=== PATIENT | male | born 1960 | race Caucasian/White ===

== ENCOUNTER 2016-11-18 03:15 | Emergency (ER) | payer BC ==
--- NOTE | 2016-11-18 03:31 | EDM.PDOC ---
[id number] 4d RIB PAIN Time Seen by Provider: 11/18/16 03:20 Source of Information: Reports: Patient History Limitations: Reports: No limitations - History of Present Illness INITIAL COMMENTS - FREE TEXT/NARRATIVE: HISTORY AND PHYSICAL: History of present illness: [56-year-old male complaining of right-sided rib pain since last night. Patient has had a nonproductive cough for a week and a half. He has some severe coughing fits and during one of these yesterday he evolved sudden right sided rib pain is reproducible with palpation and deep breath. No anticoagulants. No prior history of pneumothorax or hypercoagulability. No fevers chills sweats or shaking chills. No exertional chest pain. No nausea vomiting or diaphoresis. Patient is not short of breath however he said his right ribs do hurt when he takes a deep breath Review of systems: As per history of present illness and below otherwise all systems reviewed and negative. Past medical history: As per history of present illness and as reviewed below otherwise noncontributory. Surgical history: As per history of present illness and as reviewed below otherwise noncontributory. Social history: No reported history of drug or alcohol abuse. Family history: As per history of present illness and as reviewed below otherwise noncontributory. Physical exam: HEENT: Atraumatic, normocephalic, pupils reactive, negative for conjunctival pallor or scleral icterus, mucous membranes moist, throat clear, neck supple, nontender, trachea midline. Lungs: Clear to auscultation, breath sounds equal bilaterally, chest with right lateral rib tenderness. No subcutaneous air or bony crepitus. No ecchymosis or skin changes Heart: S1S2, regular, negative for clicks, rubs, or JVD. Abdomen: Soft, nondistended, nontender. Negative for masses or hepatosplenomegaly. Negative for costovertebral tenderness. Pelvis: Stable nontender. Genitourinary: Deferred. Rectal: Deferred. Extremities: Atraumatic, negative for cords or calf pain. Neurovascular unremarkable. Neuro: Awake, alert, oriented. Cranial nerves II through XII unremarkable. Cerebellum unremarkable. Motor and sensory unremarkable throughout. Exam nonfocal. Diagnostics: [] Therapeutics: [] Impression: [] Plan: [] Definitive disposition and diagnosis as appropriate pending reevaluation and review of above. Right Lower Breast Pain Score (Numeric/FACES): 8 - Related Data Allergies Allergy/AdvReac Type Severity Reaction Status Date / Time No Known Allergies Allergy Verified 11/18/16 04:23 Home Meds: Home Meds Azithromycin [Zithromax] 250 mg PO DAILY #6 tablet 11/18/16 [Rx] Benzonatate 200 mg PO TID #30 capsule 11/18/16 [Rx] Hydrocodone/Acetaminophen [[place] 5-325 Tablet] 1 each PO Q4H PRN #10 tablet [Rx] Multivitamin [Multivitamins] 1 tab PO DAILY 11/18/16 [History] Past Medical History - Past Health History Medical/Surgical History: Denies Medical/Surgical History - Infectious Disease History Infectious Disease History: Reports: Chicken pox Social & Family History - Family History Family Medical History: Noncontributory - Tobacco Use Smoking Status *Q: Current Every Day Smoker Years of Tobacco use: 30 Packs/Tins Daily: 0.5 - Caffeine Use Caffeine Use: Reports: Coffee Caffeine Use Comment: 1cup/day - Recreational Drug Use Recreational Drug Use: No ED ROS GENERAL - Review of Systems Review Of Systems: See Below (Per history of present illness) ED EXAM, GENERAL - Physical Exam Exam: See Below (Per history of present illness) Course - Vital Signs Text/Narrative:: Signs and symptoms consistent with right rib injury. No bony crepitus appreciated. No subcutaneous air. Normal respiratory rate and pulse ox. Well- appearing patient. Chest x-ray pending to rule out displaced fracture, pulmonary complication of fracture, or other pulmonary findings. Toradol given IM. Normal respiratory rate and pulse ox. Chest x-ray with right-sided infiltrate. No pneumothorax. No displaced rib fracture or pneumothorax. Patient given dose of by mouth Zithromax ZURDO and will prescribe Z-Myles. He is aware to take ibuprofen and [place] prescribed to him as he feels he'll be unable asleep without something stronger than an NSAID. No further workup or treatment indicated. Patient agrees with outpatient followup. Strict return precautions given Last Recorded V/S: Last Vital Signs Temp 36.6 C 11/18/16 06:02 Pulse 83 11/18/16 06:02 Resp 16 11/18/16 06:02 BP 127/76 11/18/16 06:02 Pulse Ox 95 11/18/16 06:02 - Orders/Labs/Meds Meds: Medications Discontinued Medications Generic Name Dose Route Start Last Admin Trade Name Rosie PRN Reason Stop Dose Admin Azithromycin 500 mg 11/18/16 05:26 11/18/16 05:30 Zithromax PO 11/18/16 05:27 500 mg NOW STA Administration Ketorolac Tromethamine 60 mg 11/18/16 04:22 11/18/16 04:28 Toradol IM 11/18/16 04:23 60 mg ONETIME ONE Administration Departure - Departure Time of Disposition: 05:44 Disposition: Home, Self-Care 01 Condition: good Clinical Impression: Rib injury, Chest wall pain, Right middle lobe pneumonia Prescriptions: Azithromycin [Zithromax] 250 mg PO DAILY #6 tablet Benzonatate 200 mg PO TID #30 capsule Hydrocodone/Acetaminophen [[place] 5-325 Tablet] 1 each PO Q4H PRN #10 tablet PRN Reason: Breakthrough pain Instructions: Chest Wall Pain, [id number], Community-Acquired Pneumonia, Adult, [id number] Referrals: PCP,None [Primary Care Provider] - Forms: ED Department Discharge Additional Instructions: You have a right-sided pneumonia. Finish Zithromax as prescribed. Your excessive coughing as cause you to have a chest wall injury on the right. You may have a nondisplaced rib fracture or it may be just muscle strain of the chest wall. Your x-rays were unremarkable other than the finding of the pneumonia. There is no visible fracture or pneumothorax. Take Mucinex and Tessalon as needed for cough. Finish Zithromax as prescribed. Take ibuprofen every 6 hours, Granville every 4-6 hours as needed for pain and follow up with your tomorrow.
[2016-11-18] MEDS ORDERED: Ketorolac 60 MG/2 ML SDV IM ONE (04:22)
[2016-11-18] MEDS ORDERED: Azithromycin 250 MG Tab PO STA (05:26)
[2016-11-18 06:04] VITALS: BP 127/76
--- NOTE | 2016-11-18 19:54 | CR ---
EXAM DATE: 11/18/16 PATIENT'S AGE: 56 Patient: DIDIER BANEGAS Facility: [place], [place] Site . Site : [id number] Study: XRay Extremity Right Ribs [id number]/[id number] 4:22:20 AM Ordering Physician: Jaime Ramirez Final Report: INDICATION: INDICATION:Cough. Pain. TECHNIQUE: Do a frontal view of the chest and four views of the right ribs COMPARISON: None available in FINDINGS: Cardiovascular and mediastinum: Heart size and vasculature are normal in caliber and appearance. Mediastinum is within normal limits. Lungs and pleural spaces: A right basilar infiltrate compatible with pneumonia. No pleural effusions. Bones and soft tissues: Detailed oblique images of the right ribs demonstrate no fractures or bone lesions. IMPRESSION: Right basilar pneumonia. Recommend radiographic followup to document resolution. No evidence of an acute displaced rib fracture Dictated by Houston Cabral MD @ 11/18/2016 5:21:04 AM Dictated by: Houston Cabral MD @ 11/18/2016 05:21:10 (Electronic Signature) Report Signed by Proxy and Original Signed Document filed in the Medical Record. MAIK
== END 2016-11-18 06:05 | disposition home or self-care (01) ==
LOC: MW.ED 03:15
DX: S29.8XXA Other specified injuries of thorax, initial encounter (principal); J18.1 Lobar pneumonia, unspecified organism; F17.210 Nicotine dependence, cigarettes, uncomplicated
CPT/HCPCS: 71101; 96372; 99284; A9270; J1885; 99283